=== PATIENT | female | born 1975 | race Two or more races ===

== ENCOUNTER 2020-10-18 07:29 | Outpatient (CLI) | payer OTHER | END 2020-10-18 07:47 | disposition home or self-care (01) | LOC: MAMO-SONO 07:29 | PROVIDERS: ATTEND Internal Medicine Endocrinology, Diabetes & Metabolism | DX: Z12.31 Encounter for screening mammogram for malignant neoplasm of breast (principal); N64.59 Other signs and symptoms in breast; E04.2 Nontoxic multinodular goiter ==

== ENCOUNTER 2021-04-21 09:37 | Emergency (ER) | payer OTHER ==
[~2021-04-21] VITALS: Ht 157.5 cm; Wt 90.7 kg
[2021-04-21] MEDS ORDERED: CALCIUM500 M2 (10:01)
[2021-04-21] MEDS ORDERED: OSTEOBLOX CF C1 EACH (10:02)
== END 2021-04-21 11:33 | disposition home or self-care (01) ==
LOC: ER 09:37
DX: M54.5 Low back pain (principal)

== ENCOUNTER 2021-11-17 09:37 | Outpatient (CLI) | payer OTHER ==
[~2021-11-17 09:37] MED LIST: CALCIUM500 M2; OSTEOBLOX CF C1 EACH
== END 2021-11-17 09:42 | disposition home or self-care (01) ==
LOC: LAB 09:37
PROVIDERS: ATTEND Obstetrics & Gynecology
DX: D50.8 Other iron deficiency anemias (principal); N39.0 Urinary tract infection, site not specified; E07.89 Other specified disorders of thyroid; I11.9 Hypertensive heart disease without heart failure; E78.3 Hyperchylomicronemia; E55.9 Vitamin D deficiency, unspecified; N95.1 Menopausal and female climacteric states; L68.0 Hirsutism

== ENCOUNTER 2022-02-13 07:09 | Outpatient (CLI) | payer OTHER | END 2022-02-13 07:33 | disposition home or self-care (01) | LOC: MAMO-SONO 07:09 | PROVIDERS: ATTEND Obstetrics & Gynecology | DX: N60.21 Fibroadenosis of right breast (principal); N60.22 Fibroadenosis of left breast; R31.9 Hematuria, unspecified ==

== ENCOUNTER → 2022-08-17 09:04 | Outpatient (CLI) | payer OTHER | END | disposition home or self-care (01) | LOC: LAB 09:04 | PROVIDERS: ATTEND Internal Medicine | DX: N95.1 Menopausal and female climacteric states (principal); K76.0 Fatty (change of) liver, not elsewhere classified; E78.2 Mixed hyperlipidemia; E03.8 Other specified hypothyroidism; E55.9 Vitamin D deficiency, unspecified; M81.0 Age-related osteoporosis without current pathological fracture ==

== ENCOUNTER 2023-02-10 09:36 | Outpatient (CLI) | payer OTHER | END 2023-02-10 09:39 | disposition home or self-care (01) | LOC: LAB 09:36 | PROVIDERS: ATTEND Obstetrics & Gynecology | DX: D50.8 Other iron deficiency anemias (principal); N39.0 Urinary tract infection, site not specified; E07.89 Other specified disorders of thyroid; I11.9 Hypertensive heart disease without heart failure; E78.3 Hyperchylomicronemia; E55.9 Vitamin D deficiency, unspecified; N95.1 Menopausal and female climacteric states; L68.0 Hirsutism; Z01.411 Encounter for gynecological examination (general) (routine) with abnormal findings ==

== ENCOUNTER 2023-02-18 07:31 | Outpatient (CLI) | payer OTHER | END 2023-02-18 07:33 | disposition home or self-care (01) | LOC: MAMO-SONO 07:31 | PROVIDERS: ATTEND Obstetrics & Gynecology | DX: N60.21 Fibroadenosis of right breast (principal); N60.22 Fibroadenosis of left breast; Z12.31 Encounter for screening mammogram for malignant neoplasm of breast ==

== ENCOUNTER 2023-12-27 10:09 | Outpatient (CLI) | payer OTHER ==
[2023-12-27 11:55] LABS: PH,URINE 6.5 (5.0-8.0); URINE APPEARANCE Clear; URINE BILIRRUBIN Negative (NEGATIVE); URINE BLOOD Moderate; URINE COLOR Yellow; URINE GLUCOSE Negative (NEGATIVE); URINE LEUKOCYTE Negative; URINE NITRATE Negative; URINE PROTEIN Negative (NEGATIVE); URINE UROBILINOGEN 0.2 E.U./dl
[2023-12-27 11:59] LABS: URINE BACTERIA 724.4 uL (0.0-1933); URINE EPITHELIAL CELLS 28.7 uL (0.0-38.8); URINE RBC 85.2 uL (0.0-20.8); URINE WBC 8.5 uL (0.0-23.2)
[2023-12-27 12:01] LABS: HEMATOCRIT 38.2 % (36.0-45.00); HEMOGLOBIN 12.8 g/dL (12.0-15.00); MEAN CELL VOLUME 86.8 fL (80.00-100.00); MEAN CORPUSCULAR HEMOGLOBIN 29.1 pg (27.00-32.0); MEAN CORPUSCULAR HGB CONC 33.5 g/dl (32.0-36.0); PLATELET COUNT 204 K/uL (150-450); RED CELL DISTRIBUTION WIDTH 13.9 % (11.5-14.5)
[2023-12-27 12:34] LABS: ob NEGATIVE (NEGATIVE)
[2023-12-27 12:51] LABS: ALBUMIN 3.8 gm/dL (3.4-5.0); BILIRUBIN TOTAL 0.58 mg/dL (0.3-1.2); CALCIUM 9.3 mg/dL (8.5-10.1); CHOL HDL RATIO 2.5 (0-5.0); CREATININE SERUM 0.73 mg/dL (0.55-1.02); GFR 84.39; GLOBULINA 4.3 G/DL (2.4-3.5); POTASSIUM 3.94 mEq/L (3.5-5.1); T4 TOTAL 9.08 UG/DL (4.8-13.9); TOTAL PROTEIN 8.1 gm/dL (6.4-8.2); TSH 1.17 uIU/mL (0.358-3.74)
[2023-12-29 13:22] LABS: T3 TOTAL 1.43 ng/ml (0.846-2.02); VITAMIN D3 25 HYDROXY 71.33 ng/ml (30-120)
== END 2023-12-27 10:14 | disposition home or self-care (01) ==
LOC: LAB 10:09
PROVIDERS: ATTEND Internal Medicine
DX: E11.9 Type 2 diabetes mellitus without complications (principal); I10 Essential (primary) hypertension; E03.9 Hypothyroidism, unspecified; E78.2 Mixed hyperlipidemia; E55.9 Vitamin D deficiency, unspecified; Z12.11 Encounter for screening for malignant neoplasm of colon; R73.01 Impaired fasting glucose

== ENCOUNTER → 2025-02-19 07:52 | Outpatient (CLI) | payer OTHER ==
[2025-02-19 09:11] LABS: BASO % 0.3 % (0.1-1.2); EOS # 0.11 (0.04-0.54); EOS % 1.7 % (0.7-7.0); HEMOGLOBIN 12.3 g/dL (11.2-15.7); LYMPH # 2.43 (1.18-3.74); LYMPH % 36.5 % (19.3-53.1); MONO # 0.35 (0.24-0.82); MONO % 5.3 % (4.7-12.5); NEUT # 3.72 (1.56-6.13); NEUT % 55.9 % (34.0-71.1); PLATELET COUNT 211 K/uL (163-369); RED BLOOD COUNT 4.24 M/uL (3.93-5.22); RED CELL DISTRIBUTION WIDTH 12.6 % (11.6-14.4)
[2025-02-19 09:14] LABS: URINE APPEARANCE Clear; URINE BILIRRUBIN Negative (NEGATIVE); URINE BLOOD Moderate; URINE COLOR Yellow; URINE GLUCOSE Negative (NEGATIVE); URINE KETONE Negative (NEGATIVE); URINE LEUKOCYTE Trace; URINE NITRATE Negative; URINE PROTEIN Negative (NEGATIVE); URINE UROBILINOGEN 0.2 E.U./dl
[2025-02-19 09:20] LABS: URINE BACTERIA 1742.8 uL (0.0-1933); URINE EPITHELIAL CELLS 36.5 uL (0.0-38.8); URINE RBC 52.5 uL (0.0-20.8); URINE WBC 27.7 uL (0.0-23.2)
[2025-02-19 09:27] LABS: URINE CAST 0.14 uL (0.0-1.40)
[2025-02-19 10:05] LABS: ALBUMIN 3.5 gm/dL (3.4-5.0); BILIRUBIN TOTAL 0.69 mg/dL (0.3-1.2); CALCIUM 9.1 mg/dL (8.5-10.1); CHOL HDL RATIO 2.4 (0-5.0); CREATININE SERUM 0.57 mg/dL (0.55-1.02); GFR 111.38; GLOBULINA 3.8 G/DL (2.4-3.5); POTASSIUM 4.53 mEq/L (3.5-5.1); T4 TOTAL 8.25 UG/DL (4.8-13.9); TOTAL PROTEIN 7.3 gm/dL (6.4-8.2); TSH 1.35 uIU/mL (0.358-3.74)
[2025-02-21 10:48] LABS: T3 TOTAL 1.15 ng/ml (0.846-2.02); VITAMIN D3 25 HYDROXY 70.35 ng/ml (30-120)
== END | disposition home or self-care (01) ==
LOC: LAB 07:52
DX: E11.9 Type 2 diabetes mellitus without complications (principal); I10 Essential (primary) hypertension; E03.9 Hypothyroidism, unspecified; E78.2 Mixed hyperlipidemia; E55.9 Vitamin D deficiency, unspecified

== ENCOUNTER 2025-03-08 10:14 | Outpatient (CLI) | payer OTHER | END 2025-03-08 10:19 | disposition home or self-care (01) | LOC: MAMO-SONO 10:14 | PROVIDERS: ATTEND Obstetrics & Gynecology | DX: N60.21 Fibroadenosis of right breast (principal); N60.22 Fibroadenosis of left breast ==